=== PATIENT | male | born 1995 | race Caucasian/White ===

== ENCOUNTER 2017-09-29 19:15 | Emergency (ER) | payer BC, OTHER ==
[2017-09-29 19:21] VITALS: BP 107/79; PULSE 94; RESP 17; TEMP 98.6; O2SAT 97
--- NOTE | 2017-09-29 19:32 | EDPHY ---
General Narrative: CHIEF COMPLAINT: "I think I have a pilonidal cyst" HISTORY OF PRESENT ILLNESS: Patient complains of 6 months duration of a area of fluctuance and possible pilonidal cyst in the gluteal cleft. This has been constant duration. It does wax and wane in severity. Over the past few weeks to discontinue to increase in size and pain. It is fluctuant him. Has not been draining. It is warm to the touch. No fever. No constipation or diarrhea. No trauma or injury. No previous history of abscess. No history of perirectal or perianal abscess. No history of Crohn's or inflammatory bowel disease. He has not yet been seen for this. Pain is severe when he touches it. It is minimal at rest. No other associated complaints or modifying factors. REVIEW OF SYSTEMS: Ten systems reviewed and are negative unless otherwise noted in the HPI PCP: None SPECIALISTS: None PAST MEDICAL HISTORY: None PAST SURGICAL HISTORY: None SOCIAL HISTORY: Nonsmoker. No alcohol. 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 Originally from [place] FAMILY HISTORY: Noncontributory EXAMINATION General Appearance: Alert, no distress Head: normocephalic, atraumatic Eyes: Pupils equal and round, no conjunctival pallor or injection ENT, Mouth: Mucous membranes moist. Airway patent Neck: Normal inspection, supple, non-tender Respiratory: No retractions or distress Cardiovascular: Regular rate and rhythm. No murmur. Gastrointestinal: Abdomen is soft and nontender no tympany. No rigidity. Back: non-tender, no bony abnormalities. Abscess as noted below. Neurological: A&O, nonfocal, normal gait Skin: Warm and dry, no rash. Abscess in the gluteal cleft measuring 3 cm. There is fluctuance and erythema. Mild surrounding erythema and induration. No spontaneous drainage. No fecal material present. Extremities: Nontender, no pedal edema Psychiatric: Mood and affect normal DIFFERENTIAL DIAGNOSES: Including but not limited to pilonidal cyst, abscess, perirectal abscess, perianal abscess, cellulitis MDM: 7:35 p.m. Likely pilonidal cyst. There is no evidence of perirectal or perianal abscess. Vital signs were well within normal limits. I will proceed with incision and drainage. He is comfortable this plan. 8:00 p.m. Cyst in the gluteal cleft that may be a pilonidal cyst. Mild surrounding cellulitis. No evidence of perianal or perirectal abscess. No fecal material was expressed. Procedure was tolerated well. I will discharge him home with short course of pain medication, Bactrim for 10 days, Keflex for 10 days. I would like him to return here in 2-3 days for wound check and packing removal. I would like him to return sooner for worsening symptoms, fever or systemic complaints. He will a general surgeon information provided from the follow-up for definitive care should this be a pilonidal cyst. I have answered all his questions. He is in stable condition discharge home. PROCEDURE: Incision and Drainage Consent: Verbal Location: Gluteal cleft Length: 3 cm total length ComplexitY: simple Anesthesia: Local. 1% lidocaine plain. 8 mL Procedure description: Area was prepped with Betadine. Using sterile procedure , a 15 blade was used to make a 1.5 cm incision. There was expression of approximately 15 mL of purulent material. No fecal matter. Minimal bleeding. Tolerated well. Packing in place. quarter-inch iodoform gauze. Sterile gauze dressing with foam tape. Expressed: 15 mL purulent Wound care: Daily dressing changes. Follow-up: Return here in 2 days for re-evaluation and packing removal - History Smoking Status: Never smoked - Objective Vital Signs: Initial Vital Signs Temperature (C) 98.6 F 09/29/17 19:18 Heart Rate 94 09/29/17 19:18 Respiratory Rate 17 09/29/17 19:18 Blood Pressure 107/79 09/29/17 19:18 O2 Sat (%) 97 09/29/17 19:18 O2 Delivery Mode Room Air Allergies/Adverse Reactions: No Known Allergies Allergy (Unverified 09/29/17 19:18) Home Medications: Medication Instructions Recorded Acetaminophen/Codeine 300/30Mg 1 each PO Q6 PRN #11 tab 09/29/17 [Tylenol #3 (*)] Cephalexin [Keflex (*)] 500 mg PO TID #30 cap 09/29/17 Sulfamethox/Tmp 800/160 mg 1 tab PO BID 10 Days tab 09/29/17 [Bactrim Ds] Departure - Departure Disposition: Home, Routine, Self-Care Clinical Impression: Abscess Condition: Good Instructions: Acetaminophen/Codeine (By mouth), Abscess (ED) Additional Instructions: 1. Daily dressing changes as discussed 2. Return here in 48-72 hours for wound check and packing removal 3. Pain medication as prescribed as needed 4. Antibiotic prescriptions as prescribed to completion 5. Contact the on-call general surgeon, information provided, for surgical consultation 6. ED precautions as discussed Referrals: KEVIN TOWNSEND [Other] - As per Instructions Zechariah Schaeffer MD [Medical Doctor] - As per Instructions Stand Alone Forms: School Excuse Prescriptions: Acetaminophen/Codeine 300/30Mg [Tylenol #3 (*)] 1 each PO Q6 PRN #11 tab PRN Reason: Pain, Mild Cephalexin [Keflex (*)] 500 mg PO TID #30 cap Sulfamethox/Tmp 800/160 mg [Bactrim Ds] 1 tab PO BID 10 Days tab
== END 2017-09-29 20:37 | disposition home or self-care (01) ==
PROC: 0H98XZZ Drainage of Buttock Skin, External Approach (ICD-10-PCS; principal; 2017-09-29)
DX: L02.31 Cutaneous abscess of buttock (principal)

== ENCOUNTER 2017-10-01 17:41 | Emergency (ER) | payer OTHER ==
[2017-10-01 17:53] VITALS: BP 106/65; PULSE 87; RESP 16; TEMP 99.1; O2SAT 97
--- NOTE | 2017-10-01 18:41 | EDPHY ---
H & P Stated Complaint: asked to return for abcess check -here 2 days ago improving w / antbx Time Seen by Provider: 10/01/17 18:43 HPI/ROS: HPI: This is a 22-year-old male who presents with Chief Complaint: Abscess check Location: Gluteal cleft Quality: Abscess Duration: Several days Signs and Symptoms: No fever, no drainage, no erythema, + pain Timing: Improving Severity: Mild Context: Patient was seen in this emergency room on 09/29/2017 for an abscess on his gluteal cleft. An IUD was performed and he was placed on 10 days of Keflex and Bactrim. Patient reports that his pain has significantly improved and he is able to sit now for longer periods of time. He is returning tomorrow to [place] for the . Modifying Factors: Antibiotics Comment: ROS: see HPI Constitutional: No fever, no chills, no weight loss Eyes: No blurred vision Respiratory: No shortness of breath, no cough Cardiovascular: No chest pain Gastrointestinal: No nausea, no vomiting, no diarrhea Genitourinary: No dysuria Extremities: No myalgias Neurologic: No weakness, no numbness Skin: No rashes Hematologic: No bruising, no bleeding MEDICAL/SURGICAL/SOCIAL HISTORY: Medical history: Pituitary adenoma Surgical history: Denies Social history: Local college student CONSTITUTIONAL: awake and alert, no obvious distress HEENT: Atraumatic and normocephalic, PERRL, EOMI. Tympanic membranes clear. Oropharynx clear, no exudate and moist pink mucosa. Airway patent. No lymphadenopathy. No meningismus. Cardiovascular: Normal S1/S2, regular rate, regular rhythm, without murmur rub or gallop. PULMONARY/CHEST: Symmetrical and nontender. Clear to auscultation bilaterally. Good air movement. No accessory muscle usage. ABDOMEN: Soft, nondistended, nontender, no rebound, no guarding, no peritoneal signs, no masses or organomegaly. No CVAT. BACK: Small area at the top of the gluteal cleft with packing in place and no surrounding erythema/fluctuance/erythema. No rectal involvement. EXTREMITIES: 2/2 pulses, strength 5/5, no deformities, no clubbing, no cyanosis or edema. NEUROLOGICAL: no focal neuro deficits. GCS 15. SKIN: Warm and dry, no erythema. no rash. Good capillary refill. Source: Patient Exam Limitations: No limitations - Personal History Current Tetanus/Diphtheria Vaccine: Unsure Current Tetanus Diphtheria and Acellular Pertussis (TDAP): Unsure - Medical/Surgical History Hx Asthma: No Hx Chronic Respiratory Disease: No Hx Diabetes: No Hx Cardiac Disease: No Hx Renal Disease: No Hx Cirrhosis: No Hx Alcoholism: No Hx HIV/AIDS: No Hx Splenectomy or Spleen Trauma: No Other PMH: pituitary adenoma - Social History Smoking Status: Never smoked Constitutional: Initial Vital Signs Temperature (C) 37.3 C 10/01/17 17:50 Heart Rate 87 10/01/17 17:50 Respiratory Rate 16 10/01/17 17:50 Blood Pressure 106/65 10/01/17 17:50 O2 Sat (%) 97 10/01/17 17:50 O2 Delivery Mode Room Air Allergies/Adverse Reactions: No Known Allergies Allergy (Verified 10/01/17 17:49) Home Medications: Medication Instructions Recorded Acetaminophen/Codeine 300/30Mg 1 each PO Q6 PRN #11 tab 09/29/17 [Tylenol #3 (*)] Cephalexin [Keflex (*)] 500 mg PO TID #30 cap 09/29/17 Sulfamethox/Tmp 800/160 mg 1 tab PO BID 10 Days tab 09/29/17 [Bactrim Ds] Medical Decision Making Procedures: Procedure: Abscess drainage. The patient's abscess was located on the gluteal cleft. The packing was removed. The abscess was irrigated copiously. I then placed 1/4 inch iodoform packing. The patient tolerated the procedure well. The procedure was performed by myself. ED Course/Re-evaluation: Wound is greatly improved No signs cellulitis/sepsis Differential Diagnosis: Differential diagnosis includes but is not limited to abscess, cellulitis, fistula. Departure - Departure Disposition: Home, Routine, Self-Care Clinical Impression: Abscess re-check, Abscess of gluteal cleft Condition: Good Instructions: Rectal Abscess (ED), Warm Compress or Soak (ED) Additional Instructions: Keep the dressing and packing in place for 48 hours. After 48 hours, you may remove the dressing; wash the site daily with mild soap and water; then pat dry. Complete entire antibiotic course as directed. Referrals: JAYME TOWNSEND [Other] - As per Instructions
== END 2017-10-01 18:45 | disposition home or self-care (01) ==
DX: Z48.00 Encounter for change or removal of nonsurgical wound dressing (principal); L02.31 Cutaneous abscess of buttock
CPT/HCPCS: G0463